=== PATIENT | male | born 1955 | race Caucasian/White ===

== ENCOUNTER → 2020-10-07 | Outpatient (CLI) | payer MEDICARE | END | disposition home or self-care (01) | LOC: LABWHC1 15:52 | PROVIDERS: ATTEND Family Medicine | DX: Z20.828 Contact with and (suspected) exposure to other viral communicable diseases (principal) | CPT/HCPCS: U0003; C9803 ==

== ENCOUNTER 2023-07-25 11:28 | Inpatient (IN) | payer MEDICARE ==
[2023-07-25] MEDS ORDERED: HEPARIN SODIUM 1,000 UN/ML (10ML VL) IV PRN ×2 (11:36→19:33)
[2023-07-25] MEDS ORDERED: NITROGLYCERIN SL TABS 0.4 MG TAB SUBLINGUAL PRN ×4 (11:37→20:59)
--- NOTE | 2023-07-25 11:40 | ED ---
Chest Pain HPI - General Stated Complaint: Chest Pain Time Seen by Provider: 07/25/23 11:30 Source: patient, EMS, RN notes reviewed Mode of arrival: EMS Limitations: no limitations - History of Present Illness Initial Comments: 67-year-old male presents emergency Department chief complaint of chest pain. Patient presents via EMS from [facility] as a transfer. Patient states that he had some on-and-off pain over the weekend states that it was worse with exertion. Patient states pain is resolving now. Patient reportedly had an elevated troponin 0.29 at [facility]. Patient initially had some EKG changes had resolved. Patient was placed on heparin. Patient states he currently has no chest pain or shortness breath he does have a history of hypertension. - Related Data Allergies Allergy/AdvReac Type Severity Reaction Status Date / Time No Known Allergies Allergy Verified 07/25/23 11:48 Review of Systems ROS Statement: Those systems with pertinent positive or pertinent negative responses have been documented in the HPI. ROS Other: All systems not noted in ROS Statement are negative. General Exam General appearance: alert, in no apparent distress Head exam: Present: atraumatic, normocephalic, normal inspection Eye exam: Present: normal appearance, PERRL, EOMI. Absent: scleral icterus, conjunctival injection, periorbital swelling ENT exam: Present: normal exam, normal oropharynx, mucous membranes moist Neck exam: Present: normal inspection, full ROM. Absent: tenderness, meningis mus, lymphadenopathy Respiratory exam: Present: normal lung sounds bilaterally. Absent: respiratory distress, wheezes, rales, rhonchi, stridor Cardiovascular Exam: Present: regular rate, normal rhythm, normal heart sounds. Absent: systolic murmur, diastolic murmur, rubs, gallop, clicks GI/Abdominal exam: Present: soft, normal bowel sounds. 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 sent in by a medical professional or institution (, PA, TESTING CONSULTANT, urgent care, hospital, or shelter...) When possible be specific @ -[facility] Did you speak to anyone other than the patient for history (EMS, parent, family, police, friend...)? What history was obtained from this source @ -[facility], [facility] as a transfer Did you review nursing and triage notes (agree or disagree)? Why? @ -I reviewed and agree with nursing and triage notes Were old charts reviewed (outside hosp., previous admission, EMS record, old EKG, old radiological studies, urgent care reports/EKG's, shelter records)? Report findings @ -Reviewed labs from prior hospital, EKG and chest x-ray Differential Diagnosis (chest pain, altered mental status, abdominal pain women, abdominal pain men, vaginal bleeding, weakness, fever, dyspnea, syncope, headache, dizziness, GI bleed, back pain, seizure, CVA, palpatations, mental health, musculoskeletal)? @ -Differential Chest Pain: Stable Angina, Unstable Angina, STEMI, NSTEMI Aortic Dissection, Pneumothorax, Musculoskeletal, Esophageal Spasm GERD, Cholecystitis, Pancreatitis, Zoster, this is not meant to be an all-inclusive list. e EKG interpreted by me (3pts min.). @ -None X-rays interpreted by me (1pt min.). @ -None done CT interpreted by me (1pt min.). @ -None done U/S interpreted by me (1pt. min.). @ -None done What testing was considered but not performed or refused? (CT, X-rays, U/S, labs)? Why? @ -None What meds were considered but not given or refused? Why? @ -None Did you discuss the management of the patient with other professionals (professionals i.e. , PA, TESTING CONSULTANT, lab, RT, psych nurse, social science professor, protection consultant, teacher, chief security officer, pillowcase cleaner)? Give summary @ -Dr. Chappell for admission for cardiac rule out, NSTEMI Was smoking cessation discussed for >3mins.? @ -No Was critical care preformed (if so, how long)? @ -35 mins Were there social determinants of health that impacted care today? How? (Homelessness, low income, unemployed, alcoholism, drug addiction, transportation, low edu. Level, literacy, decrease access to med. care, retirement, rehab)? @ -No Was there de-escalation of care discussed even if they declined (Discuss DNR or withdrawal of care, Hospice)? DNR status @ -No What co-morbidities impacted this encounter? (DM, HTN, Smoking, COPD, CAD, Cancer, CVA, ARF, Chemo, Hep., AIDS, mental health diagnosis, sleep apnea, morbid obesity)? @ -Hypertension Was patient admitted / discharged? Hospital course, mention meds given and route, prescriptions, significant lab abnormalities, going to OR and other pertinent info. @ -Admitted to the hospital for NSTEMI, for cardiology evaluation and repeat troponin, continuation of heparin. Undiagnosed new problem with uncertain prognosis? @ -No Drug Therapy requiring intensive monitoring for toxicity (Heparin, Nitro, Insulin, Cardizem)? @ -Heparin Were any procedures done? @ -No Diagnosis/symptom? @ -NSTEMI Acute, or Chronic, or Acute on Chronic? @ -acute Uncomplicated (without systemic symptoms) or Complicated (systemic symptoms)? @ -complicated Side effects of treatment? @ -No Exacerbation, Progression, or Severe Exacerbation? @ -No Poses a threat to life or bodily function? How? (Chest pain, [place], [place], pneumonia, PE, COPD, DKA, ARF, appy, cholecystitis, CVA, Diverticulitis, Homicidal, Suicidal, threat to staff... and all critical care pts) @ -yes at risk for cardiac arrest Disposition Clinical Impression: Chest pain, NSTEMI (non-ST elevated myocardial infarction) Disposition: ADMITTED IP TO THIS HOSP Condition: Fair Referrals: Kristofer Chappell MD [Primary Care Provider] - 1-2 days Time of Disposition: 11:40
[2023-07-25] MEDS ORDERED: HEPARIN SOD,PORK IN 0.45% NACL 25,000 UNIT in 0.45% NACL 1 250ML.BAG IV SCH ×2 (11:45→19:45)
[2023-07-25 12:12] LABS: Prothrombin Time 10.9 sec (9.0-12.0)
[2023-07-25 12:18] LABS: Partial Thromboplastin Time 78.1 sec (22.0-30.0)
[2023-07-25] MEDS ORDERED: ALPRAZolam 0.25 MG TAB PO PRN (13:18)
[2023-07-25] MEDS ORDERED: ALPRAZolam 0.5 MG TAB PO PRN (13:18)
--- NOTE | 2023-07-25 13:25 | P.CRDCN ---
History of Present Illness History of present illness: HISTORY OF PRESENT ILLNESS: This is a 67-year-old male with a past medical history significant for hypertension, hyperlipidemia, and former nicotine dependence. 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 We have been asked to see the patient in consultation for chest pain. Patient examined at the bedside in the emergency room. Patients and daughter present. The patient presented to [facility] this morning with a chief complaint of chest pain. The patient states he has been having chest pain on and off since Tuesday. He reports the pain is in the middle of his chest and feels like a pressure type sensation. He also reports radiation into his left arm. He denied feeling nauseated. He does report having mild diaphoresis. He denied any shortness of breath. At the time of examination, the patient is chest pain-free and is resting comfortably on the ER stretcher. Patient's vital signs are stable. He was found to have an elevated troponin and was started on IV heparin. * EKG reveals sinus mechanism with nonspecific ST-T wave changes. T-wave inversions in lead III and V3 * Current home cardiac medications include Crestor 10 mg at night, metoprolol succinate 100 mg at night, losartan-hydrochlorothiazide 50-12.5mg 2 tablets daily, aspirin 81 mg daily REVIEW OF SYSTEMS: At the time of my exam: CONSTITUTIONAL: Denies fever or chills. HEENT: Denies blurred vision, vision changes, or eye pain. Denies hemoptysis CARDIOVASCULAR: Denies chest pain. Denies orthopnea. Denies PND. Denies palpitations RESPIRATORY: Denies shortness of breath. GASTROINTESTINAL: Denies abdominal pain. Denies nausea or vomiting. HEMATOLOGIC: Denies bleeding disorders. GENITOURINARY: Denies any blood in urine. SKIN: Denies pruitis. Denies rash. PHYSICAL EXAM: VITAL SIGNS: Reviewed. GENERAL: Well-developed in no acute distress. HEENT: Head is normocephalic. Pupils are equal, round. Sclerae anicteric. Mucous membranes of the mouth are moist. Neck supple. No JVD or thyromegaly LUNGS: Respirations even and unlabored. Lungs essentially clear to auscultation bilaterally. HEART: Regular rate and rhythm. S1 and S2 heard. ABDOMEN: Soft. Nondistended. Nontender. EXTREMITIES: Normal range of motion. No clubbing or cyanosis. Peripheral pulses intact. No lower extremity edema NEUROLOGIC: Awake and alert. Oriented x 3. ASSESSMENT: Chest pain Non-STEMI Hypertension Hyperlipidemia Former nicotine dependence PLAN: Obtain 2-D echo to assess cardiac structure and function Resume home cardiac medications Continue IV heparin Add Nitropaste and high intensity statin NPO at midnight Patient to undergo cardiac catheterization tomorrow with Dr. Muir Further recommendations pending patient's course Nurse practitioner note has been reviewed by physician. Signing provider agrees with the documented findings, assessment, and plan of care. Past Medical History Past Medical History: Hypertension, Thyroid Disorder Additional Past Medical History / Comment(s): Grave's Disease, History of Any Multi-Drug Resistant Organisms: None Reported Past Surgical History: Ear Surgery, Orthopedic Surgery Additional Past Surgical History / Comment(s): Shoulder surgeries Past Psychological History: No Psychological Hx Reported Smoking Status: Former smoker Past Alcohol Use History: None Reported Past Drug Use History: None Reported Medications and Allergies Home Medications Medication Instructions Recorded Confirmed Type Aspirin EC [Ecotrin Low Dose] 81 mg PO HS 07/25/23 07/25/23 History Latanoprost [Latanoprost 0.005%] 1 drop BOTH EYES HS 07/25/23 07/25/23 History Levothyroxine Sodium [Synthroid] 175 mcg PO DAILY 07/25/23 07/25/23 History Loratadine [Claritin] 10 mg PO DAILY 07/25/23 07/25/23 History Losartan-Hctz 50-12.5 mg [Hyzaar 2 tab PO DAILY 07/25/23 07/25/23 History 50-12.5] Metoprolol Succinate [Toprol XL] 100 mg PO HS 07/25/23 07/25/23 History Multivitamins, Thera [Multivitamin 1 tab PO DAILY 07/25/23 07/25/23 History (formulary)] Rosuvastatin [Crestor] 10 mg PO HS 07/25/23 07/25/23 History Allergies Allergy/AdvReac Type Severity Reaction Status Date / Time No Known Allergies Allergy Verified 07/25/23 11:48 Physical Exam Vitals: Vital Signs Temp Pulse Pulse Resp BP Pulse Ox 07/25/23 11:46 89 07/25/23 11:33 98.2 F 90 18 140/77 96 Intake and Output 07/24/23 07/25/23 07/25/23 22:59 06:59 14:59 Intake Total 13 Balance 13 Intake: Intake, IV Titration 13 Amount Heparin Sod,Pork in 0.45% 13 NaCl 25,000 unit In 0.45 % NaCl 1 250ml.bag @ 9. 585 UNITS/KG/HR 10 mls/hr IV .Q24H [facility] Rx#: [id number] Other: Weight 104.326 kg Results Cardiac Enzymes 07/25/23 Range/Units 11:58 Troponin I 0.974 H* (0.000-0.034) ng/mL Coagulation 07/25/23 Range/Units 11:58 PT 10.9 (9.0-12.0) sec APTT 78.1 H (22.0-30.0) sec Current Medications Generic Name Dose Route Start Last Admin Trade Name Freq PRN Reason Stop Dose Admin Alprazolam 0.25 mg 07/25/23 13:18 Alprazolam 0.25 Mg Tab PO Q6HR PRN Mild Anxiety Alprazolam 0.5 mg 07/25/23 13:18 Alprazolam 0.5 Mg Tab PO Q6HR PRN Moderate Anxiety Aspirin 81 mg 07/26/23 09:00 Aspirin 81 Mg PO DAILY [facility] Aspirin 325 mg 07/26/23 05:00 Aspirin 325 Mg Tab PO 07/26/23 05:01 ONCE ONE Atorvastatin Calcium 80 mg 07/25/23 21:00 Atorvastatin 80 Mg Tab PO HS [facility] Atorvastatin Calcium 80 mg 07/26/23 05:00 Atorvastatin 80 Mg Tab PO 07/26/23 05:01 ONCE ONE HCTZ/Losartan Potassium 2 each 07/26/23 09:00 Losartan-Hctz 50-12.5 Mg 1 Each Tab PO DAILY [facility] Heparin Sodium (Porcine) 0 unit 07/25/23 11:36 Heparin Sodium 1,000 Un/Ml (10ml Vl) IV PER PROTOCOL PRN Low PTT Protocol Heparin Sodium/Sodium Chloride 250 mls @ 10 mls/hr 07/25/23 11:45 07/25/23 12:48 25,000 unit/ Sodium Chloride IV 10.54 units/kg/hr .Q24H [facility] 11 mls/hr Titration Protocol 9.585 UNITS/KG/HR Heparin Sodium (Porcine) 10, 1,001 mls @ 999 mls/hr 07/26/23 07:00 000 unit/ Sodium Chloride IRRIGATION 07/26/23 23:00 ONCE PRN INTRA-OP Heparin Sodium (Porcine) 2,500 250.5 mls @ 250 mls/hr 07/26/23 07:00 unit/ Sodium Chloride IRRIGATION 07/26/23 23:00 ONCE PRN INTRA-OP Sodium Chloride 1,000 ml/ IV 1,000 mls @ 104.326 mls/hr 07/25/23 23:00 Solution IV .Q9H36M [facility] 1 ML/KG/HR Latanoprost 1 drops 07/25/23 21:00 Latanoprost 0.005% Ophth Drops 2.5 Ml Btl BOTH EYES HS [facility] Metoprolol Succinate 100 mg 07/25/23 21:00 Metoprolol Succinate (Er) 50 Mg Tab.Er.24h PO HS [facility] Nitroglycerin 0.4 mg 07/25/23 11:37 Nitroglycerin Sl Tabs 0.4 Mg Tab SUBLINGUAL Q5M PRN Chest Pain Nitroglycerin 0.5 inch 07/25/23 13:30 Nitroglycerin Oint 1 Inch/Gm Packet TOPICAL Q8H [facility] Nitroglycerin 0.4 mg 07/25/23 13:18 Nitroglycerin Sl Tabs 0.4 Mg Tab SUBLINGUAL Q5M PRN Chest Pain Non-Formulary Medication 175 mcg 07/26/23 09:00 Levothyroxine Sodium [Synthroid] PO DAILY [facility] Intake and Output 07/24/23 07/25/23 07/25/23 22:59 06:59 14:59 Intake Total 13 Balance 13 Intake: Intake, IV Titration 13 Amount Heparin Sod,Pork in 0.45% 13 NaCl 25,000 unit In 0.45 % NaCl 1 250ml.bag @ 9. 585 UNITS/KG/HR 10 mls/hr IV .Q24H [facility] Rx#: [id number] Other: Weight 104.326 kg Patient Weight 07/26/23 06:59 Weight 104.326 kg
[2023-07-25 13:39] LABS: Glucose,Whole Blood 113 mg/dL (70-110)
[2023-07-25 13:43] LABS: Basophils % (A) 0 %; Eosinophils # (A) 0.2 k/uL (0-0.7); Eosinophils % (A) 2 %; HCT 43.2 % (39.0-53.0); HGB 14.8 gm/dL (13.0-17.5); Lymphocytes # (A) 2.2 k/uL (1.0-4.8); Lymphocytes % (A) 26 %; MCH 30.8 pg (25.0-35.0); MCHC 34.3 g/dL (31.0-37.0); MCV 89.8 fL (80.0-100.0); Mean Platelet Volume 7.5; Monocytes # (A) 0.5 k/uL (0-1.0); Monocytes % (A) 6 %; Neutrophils # (A) 5.3 k/uL (1.3-7.7); Neutrophils % (A) 63 %; Platelet Count 255 k/uL (150-450); RBC 4.81 m/uL (4.30-5.90); RDW 14.3 % (11.5-15.5); WBC 8.4 k/uL (3.8-10.6)
[2023-07-25 14:02] LABS: African American GFR (CKD) >90 (>60 ml/min/1.73 sqM); Anion Gap 6 mmol/L; Blood Urea Nitrogen 18 mg/dL (9-20); Calcium 10.1 mg/dL (8.4-10.2); Carbon Dioxide 23 mmol/L (22-30); Chloride 106 mmol/L (98-107); Glucose 123 mg/dL (74-99); Non-African American GFR(CKD) >90 (>60 ml/min/1.73 sqM); Sodium 135 mmol/L (137-145)
[2023-07-25 14:03] LABS: Potassium 5.3 mmol/L (3.5-5.1)
[2023-07-25] MEDS: NITROGLYCERIN OINT 1 INCH/GM PACKET TOPICAL SCH ×2 (15:04→23:44)
[2023-07-25] MEDS ORDERED: IV FLUID CONTINUATION 1,000 ML IV ONE ×2 (16:58→20:05)
--- NOTE | 2023-07-25 17:00 | CA ---
Transthoracic Echo Report Name: Jim Wren Age: 67 Gender: M : 1955 Exam Date: 07/25/2023 14:06 Exam Location: [facility] Ht (in): 67 Wt (lb): 230 Ordering Physician: Alvaro Reid Attending/Referring Phys: [id number], [employer] Investigator Librado Angulo Procedure CPT: Indications: Chest Pain Cardiac Hx: Technical Quality: Technically difficult study Contrast 1: Lumason Total Dose (mL): 5 Contrast 2: Total Dose (mL): MEASUREMENTS (Male / Female) Normal Values 2D ECHO LV Diastolic Diameter PLAX 4.5 cm 4.2 - 5.9 / 3.9 - 5.3 cm LV Systolic Diameter PLAX 3.1 cm IVS Diastolic Thickness 1.3 cm 0.6 - 1.0 / 0.6 - 0.9 cm LVPW Diastolic Thickness 1.0 cm 0.6 - 1.0 / 0.6 - 0.9 cm LV Relative Wall Thickness 0.5 RV Internal Dim ED PLAX 3.1 cm LVOT Diameter 2.1 cm Aortic Root Diameter 2.8 cm LA Systolic Diameter LX 2.5 cm 3.0 - 4.0 / 2.7 - 3.8 cm LV Diastolic Volume MOD BP 48.4 cm??? 67 - 155 / 56 - 104 cm??? LV Systolic Volume MOD BP 20.2 cm??? - 58 / 19 - 49 cm??? LV Ejection Fraction MOD BP 58.2 % >= 55 % LV Cardiac Index MOD BP 1108.9 cm???/min???m??? LV Diastolic Volume MOD 4C 48.8 cm??? LV Systolic Volume MOD 4C 16.8 cm??? LV Ejection Fraction MOD 4C 65.5 % LV Cardiac Index MOD 4C 1254.9 cm???/min???m??? LV Diastolic Length 4C 7.3 cm LV Systolic Length 4C 6.7 cm LV Diastolic Volume MOD 2C 47.9 cm??? LV Systolic Volume MOD 2C 35.0 cm??? LV Ejection Fraction MOD 2C 27.0 % LV Cardiac Index MOD 2C 508.3 cm???/min???m??? LV Diastolic Length 2C 7.2 cm LV Systolic Length 2C 7.0 cm LA Volume 47.4 cm??? 18 - 58 / 22 - 52 cm??? Ascending Aorta Diameter 3.2 cm DOPPLER AV Peak Velocity 153.4 cm/s AV Peak Gradient 9.4 mmHg LVOT Peak Velocity 105.6 cm/s LVOT Peak Gradient 4.5 mmHg LVOT Velocity Time Integral 24.6 cm LVOT Stroke Volume 82.5 cm??? LVOT Stroke Volume Index 38.5 ml/m??? LVOT Cardiac Index 3245.2 cm???/min???m??? AV Area Cont Eq pk 2.3 cm??? MV Peak Velocity 125.3 cm/s MV Peak Gradient 6.3 mmHg MV Mean Velocity 59.4 cm/s MV Mean Gradient 1.8 mmHg MV Velocity Time Integral 34.7 cm Mitral E Point Velocity 79.3 cm/s Mitral A Point Velocity 116.5 cm/s Mitral E to A Ratio 0.7 MV Deceleration Time 211.0 ms MV E' Velocity 6.8 cm/s Mitral E to MV E' Ratio 11.7 PV Peak Velocity 110.3 cm/s PV Peak Gradient 4.9 mmHg FINDINGS Left Ventricle Normal LV size and wall thickness. Emery-apical hypokenesis. Left ventricular ejection fraction is estimated at 40-45 % visually. Right Ventricle Normal right ventricular size. Right Atrium Normal right atrial size. Left Atrium Normal left atrial size. LA volume index = 22ml/m2 Mitral Valve Structurally normal mitral valve. No mitral stenosis, regurgitation or prolapse. Aortic Valve Aortic valve not well visualized. Trileaflet aortic valve. No aortic valve stenosis or regurgitation. Tricuspid Valve Tricuspid valve not well visualized. No tricuspid regurgitation. Pulmonic Valve Pulmonic valve not well visualized. No pulmonic regurgitation. Pericardium Normal pericardium. Aorta Normal size aortic root and proximal ascending aorta. CONCLUSIONS Left ventricular ejection fraction 40-45% with anterior apical hypokinesis. Possible Takotsubo's vs ischemic cardiomyopathy No mitral regurgitation No tricuspid regurgitation No pericardial effusion Previewed by: Dr. Og Choudhary DO (Electronically Signed) Final Date: 25 July 2023 16:59
[2023-07-25] MEDS ORDERED: VERAPAMIL 2.5 MG/ML 2 ML AMP ONE (17:01)
[2023-07-25] MEDS ORDERED: HEPARIN SODIUM 1,000 UN/ML (10ML VL) ONE ×2 (17:02→20:23)
[2023-07-25] MEDS ORDERED: fentaNYL (PF) 50 MCG/ML 2 ML AMP ONE (17:02)
[2023-07-25] MEDS ORDERED: LIDOCAINE 1% INJ 10MG/ML (20 ML MDV) ONE (17:02)
[2023-07-25] MEDS ORDERED: fentaNYL (PF) 50 MCG/ML 2 ML AMP IVP ONE (17:06)
[2023-07-25] MEDS: MIDAZOLAM 2 MG/2 ML VIAL IVP ONE ×2 (17:06→18:12)
[2023-07-25] MEDS: LIDOCAINE 1% INJ 10MG/ML (20 ML MDV) SQ ONE ×2 (17:07→18:10)
[2023-07-25] MEDS ORDERED: VERAPAMIL SYRINGE (5 MG/10 ML) INTRAARTER ONE (17:08)
[2023-07-25] MEDS: HEPARIN SODIUM 1,000 UN/ML (10ML VL) IV ONE ×2 (17:15→17:46)
[2023-07-25] MEDS ORDERED: PRASUGREL 10 MG TAB ONE (17:47)
[2023-07-25] MEDS ORDERED: PRASUGREL 10 MG TAB PO ONE (17:49)
[2023-07-25] MEDS ORDERED: IOPAMIDOL-370 100ML BTL INJ ONE ×2 (18:28→18:50)
[2023-07-25] MEDS ORDERED: NITROGLYCERIN 1000MCG/10ML SYRINGE INTRACORON ONE (18:35)
[2023-07-25] MEDS ORDERED: RX INFO: IV CONTRAST WAS GIVEN 1 EACH MISC MISCELLANE PRN ×2 (18:40→20:59)
[2023-07-25] MEDS ORDERED: MAG HYDROX/AL HYDROX/SIMETH 30 ML CUP PO PRN ×2 (18:40→20:59)
[2023-07-25] MEDS ORDERED: ATROPINE SULFATE 0.1 MG/ML 10ML SYRINGE IV PRN ×2 (18:40→20:59)
[2023-07-25] MEDS ORDERED: ZOLPIDEM 5 MG TAB PO PRN ×2 (18:40→20:59)
--- NOTE | 2023-07-25 18:44 | P.PCN ---
Date of Procedure: 07/25/23 Operative Findings: PERCUTANEOUS CORONARY INTERVENTION Performing physician Rom Rain M.D. Procedure Performed: 1. Successful stenting of the mid LAD using 3.5 x 23 mm Xience drug-eluting stent with an excellent angiographic results. 2. Adjunctive use of intravascular ultrasound 3. Selective right common femoral artery angiogram Indication: This is a 67-year-old gentleman who was admitted to the hospital with a chest discomfort and ruled in for acute coronary syndrome. He underwent a heart catheterization and that revealed critical disease involving the mid LAD with a plaque rupture and thrombus formation. Approach: Right radial artery and right common femoral artery Complications: None Level of Sedation: Moderate with a sedation length of 51 minutes Procedure Discussion: Please refer to be diagnostic heart catheterization was performed earlier today. Anticoagulation was initiated using heparin with continuous ACT monitoring. Attempting engaging the left main using multiple guiding catheter including JL 3 .5 and JL 3 and CLS was unsuccessful. The patient's right subclavian artery is tortuous. Finally I was able to access the right common femoral artery and I did place a 6-Pashto sheath at the right common femoral artery. I was able to engage the left main using CLS guiding catheter. After that I did wire the LAD using a run-through wire. After that I did intravascular ultrasound and that showed soft plaque involving the LAD in the midportion with possible thrombus formation. I did balloon angioplasty using a 3.0 mm balloon before I deployed 3.5 x 23 mm stent and postdilated the stent using 4 mm balloon. Final angiogram showed excellent angiographic results recommended and confirmed by intravascular ultrasound. The procedure was completed was no complication Postprocedure Management: 1. Dual antiplatelet therapy using aspirin and Effient for 12 month 2. Aggressive cholesterol control 3. Risk factors modification
[2023-07-25] MEDS ORDERED: SODIUM CHLORIDE 0.9% 1,000 ML in EMPTY BAG 1 BAG IV SCH ×3 (18:45→23:00)
[2023-07-25] MEDS ORDERED: MORPHINE SULFATE 2 MG/ML SYRINGE IVP STA ×2 (19:47→19:55)
--- NOTE | 2023-07-25 20:00 | P.HPIM ---
History of Present Illness H&P Date: 07/25/23 Chief Complaint: nstemi The patient is 67-year-old white male well-known to my practice has an underlying history of hypertension who is evaluated for an NSTEMI. The patient was taken to the [facility] and had appropriate PCI. The patient however has had renewed ST elevation with anginal pain. Cardiology is now coming to reevaluate. The patient is a former smoker. Past Medical History Past Medical History: Hypertension, Thyroid Disorder Additional Past Medical History / Comment(s): Grave's Disease, History of Any Multi-Drug Resistant Organisms: None Reported Past Surgical History: Ear Surgery, Orthopedic Surgery Additional Past Surgical History / Comment(s): Shoulder surgeries Past Psychological History: No Psychological Hx Reported Smoking Status: Former smoker Past Alcohol Use History: None Reported Past Drug Use History: None Reported Medications and Allergies Home Medications Medication Instructions Recorded Confirmed Type Aspirin EC [Ecotrin Low Dose] 81 mg PO HS 07/25/23 07/25/23 History Latanoprost [Latanoprost 0.005%] 1 drop BOTH EYES HS 07/25/23 07/25/23 History Levothyroxine Sodium [Synthroid] 175 mcg PO DAILY 07/25/23 07/25/23 History Loratadine [Claritin] 10 mg PO DAILY 07/25/23 07/25/23 History Losartan-Hctz 50-12.5 mg [Hyzaar 2 tab PO DAILY 07/25/23 07/25/23 History 50-12.5] Metoprolol Succinate [Toprol XL] 100 mg PO HS 07/25/23 07/25/23 History Multivitamins, Thera [Multivitamin 1 tab PO DAILY 07/25/23 07/25/23 History (formulary)] Rosuvastatin [Crestor] 10 mg PO HS 07/25/23 07/25/23 History Allergies Allergy/AdvReac Type Severity Reaction Status Date / Time No Known Allergies Allergy Verified 07/25/23 11:48 Physical Exam Vitals: Vital Signs Temp Pulse Pulse Resp BP Pulse Ox 07/25/23 16:43 100 18 164/98 96 07/25/23 15:03 85 18 131/95 95 07/25/23 11:46 89 07/25/23 11:33 98.2 F 90 18 140/77 96 Intake and Output 07/25/23 07/25/2307/25/23 06:59 14:59 22:59 Intake Total 13 300 Balance 13 300 Intake: IV 300 Intake, IV Titration 13 Amount Heparin Sod,Pork in 0.45% 13 NaCl 25,000 unit In 0.45 % NaCl 1 250ml.bag @ 9. 585 UNITS/KG/HR 10 mls/hr IV .Q24H [facility] Rx#: [id number] Other: Weight 104.326 kg - Constitutional General appearance: no acute distress - EENT Eyes: EOMI - Neck Neck: no lymphadenopathy - Respiratory Respiratory: bilateral: diminished - Cardiovascular Rhythm: regular Heart sounds: normal: S1, S2 Abnormal Heart Sounds: no S3 Gallop - Gastrointestinal General gastrointestinal: soft, no tenderness - Psychiatric Psychiatric: A&O x's 3, appropriate affect Results CBC & Chem 7: 07/25/23 13:34 07/25/23 13:34 Labs: Abnormal Lab Results - Last 24 Hours (Table) 07/25/23 07/25/23 07/25/23 Range/Units 11:58 11:58 13:34 APTT 78.1 H (22.0-30.0) sec Sodium 135 L (137-145) mmol/L Potassium 5.3 H (3.5-5.1) mmol/L Glucose 123 H (74-99) mg/dL POC Glucose (mg/dL) (70-110) mg/dL Troponin I 0.974 H* (0.000-0.034) ng/mL 07/25/23 07/25/23 Range/Units 13:37 15:13 APTT (22.0-30.0) sec Sodium (137-145) mmol/L Potassium (3.5-5.1) mmol/L Glucose (74-99) mg/dL POC Glucose (mg/dL) 113 H (70-110) mg/dL Troponin I 5.140 H* (0.000-0.034) ng/mL Assessment and Plan (1) Hypertension Current Visit: Yes Status: Acute Code(s): I10 - ESSENTIAL (PRIMARY) HYPERTENSION SNOMED Code(s): 55852646 (2) Chest pain Current Visit: Yes Status: Acute Code(s): R07.9 - CHEST PAIN, UNSPECIFIED SNOMED Code(s): 19746968 (3) NSTEMI (non-ST elevated myocardial infarction) Current Visit: Yes Status: Acute Code(s): I21.4 - NON-ST ELEVATION (NSTEMI) MYOCARDIAL INFARCTION SNOMED Code(s): 97271953 Plan: The patient is having some type of reperfusion issue. Continued angina. Reevaluation by cardiac catheterization lab might be necessary at this time. We'll continue to follow. Prognosis guarded. Check CBC and CMP in a.m.
[2023-07-25] MEDS ORDERED: MORPHINE SULFATE 4 MG/ML SYRINGE ONE (20:21)
[2023-07-25] MEDS ORDERED: HEPARIN SODIUM 1,000 UN/ML (10ML VL) IV ONE (20:25)
[2023-07-25] MEDS ORDERED: MORPHINE SULFATE 4 MG/ML SYRINGE IVP ONE (20:25)
[2023-07-25] MEDS ORDERED: TIROFIBAN 12.5MG-250ML NS 250 ML IV SCH (20:30)
[2023-07-25] MEDS ORDERED: TIROFIBAN 12.5MG-250ML NS 250 ML IV ONE (20:31)
[2023-07-25] MEDS ORDERED: MIDAZOLAM 2 MG/2 ML VIAL IVP ONE (20:43)
[2023-07-25] MEDS ORDERED: FUROSEMIDE 10 MG/ML 4 ML VIAL ONE (20:43)
[2023-07-25] MEDS ORDERED: FUROSEMIDE 10 MG/ML 2 ML VIAL IV ONE (20:46)
[2023-07-25] MEDS ORDERED: IOPAMIDOL-370 200ML BTL INJ ONE (20:56)
--- NOTE | 2023-07-25 21:07 | P.PCN ---
Date of Procedure: 07/25/23 Operative Findings: PERCUTANEOUS CORONARY INTERVENTION Performing physician Rom Rain M.D. Procedure Performed: 1. Successful balloon angioplasty of the mid left anterior descending artery with reduction of stenosis from 100% to 0% 2. Adjunctive use of intravascular ultrasound and aspiration thrombectomy 3. Selective left coronary angiogram Indication: This is a 67-year-old gentleman who underwent earlier today successful stenting of the left anterior descending artery in the setting of acute coronary syndrome/acute non-ST patient myocardial infarction. The procedure ended with an excellent angiographic results and reduction of stenosis from 99% to 0% with NICOLÁS-3 flow. The patient left the cardiac cardiac cath lab radiology technologist in stable medical condition and he was asymptomatic and hemodynamic is stable. Few hours after the procedure he started experiencing chest discomfort and ST segment elevation anteriorly. In the light of that he was brought emergently to the cardiac cardiac cath lab radiology technologist. The right groin sheath was already in place. Approach: Right common femoral artery Complications: None Level of Sedation: Moderate with a sedation length of 35 minutes Procedure Discussion: Please refer to prior angioplasty was performed earlier today. The right common femoral artery sheath was exchanged over an 035 wire into a new sheath 6-Bulgarian 11 cm. Subsequently I did engage the left main using a CLS 3 guiding catheter. I did an angiogram of the left coronary system and that revealed occluded LAD in the midportion which seems to be an acute stent thrombosis. Subsequently I did wire the LAD using a run-through wire. I did an aspiration thrombectomy from the LAD using an export catheter with the extraction of right thrombus. After that intravascular ultrasound was performed and revealed that the stent was opposed. I decided to do balloon angioplasty of the stented segment. Proximally I did balloon angioplasty using 4.5 mm balloon and distally I did balloon angioplasty using 4.0 mm balloon. Both balloons where noncompliant balloon. Intravascular ultrasound was performed again and showed good results and angiographically the patient did have NICOLÁS-3 flow. There was a thrombus burden involving the ostial of the second diagonal branch but it has NICOLÁS 3 flow and it. I decided to give the patient Aggrastat for the next 12-18 hours. The procedure was completed there was no complication and the patient tolerated the procedure well and he was hemodynamic stable and asymptomatic. No hematoma was identified in the groin. Conclusion: 1. Acute stent thrombosis 2. Successful balloon angioplasty without stenting of the LAD with an excellent angiographic results and reduction of stenosis from 100% to 0% Postprocedure Management: 1. Dual antiplatelet therapy using aspirin and Plavix 2. Continue Aggrastat for the next 12-18 hours 3. Standard groin care
[2023-07-25 22:39] LABS: Glucose,Whole Blood 146 mg/dL (70-110)
--- NOTE | 2023-07-25 23:19 | CC ---
CARDIAC CATHETERIZATION REPORT INDICATION: Acute non ST-segment elevation NM. PROCEDURE NOTE: After obtaining informed consent, left heart catheterization and coronary angiogram were performed via the right radial artery using standard Lissett catheters. The patient tolerated the procedure well without any obvious immediate complications. The patient received verapamil and heparin per protocol. TOTAL SEDATION TIME: 17 minutes. Right radial artery access was obtained using modified Seldinger technique. A 6-Bengali sheath was placed. Catheters and wires were passed into the ascending aorta under fluoroscopic guidance. The patient tolerated the procedure well without any obvious immediate complications. FINDINGS: 1. Right coronary artery is a large dominant vessel that shows mild nonobstructive disease involving the PDA. 2. The left main coronary artery is a normal-sized vessel and is free of stenosis. It divides into left anterior descending coronary artery and circumflex coronary artery. 3. Circumflex coronary artery is a nondominant vessel that is free of significant stenosis. There is mild nonobstructive disease involving the OM branch. 4. LAD shows a focal 95% stenosis in the midportion between the first and second diagonal branch. This is a vessel that seems to be related to the myocardial infarction and I will ask Dr. Rain, the on-call tailor helper, to perform angioplasty of the same. CONCLUSION: Severe 95% stenosis in the mid LAD between first and second diagonal branch with mild nonobstructive disease involving the PDA and the OM branch. MMODL / IJN: [id number] /
[2023-07-25] MEDS: METOPROLOL SUCCINATE (ER) 100 MG TAB.ER.24H PO SCH (23:49)
[2023-07-25] MEDS: ATORVASTATIN 80 MG TAB PO SCH (23:49)
[2023-07-25] MEDS: LATANOPROST 0.005% OPHTH DROPS 2.5 ML BTL BOTH EYES SCH (23:52)
[2023-07-26] MEDS ORDERED: ATORVASTATIN 80 MG TAB PO ONE (05:00)
[2023-07-26] MEDS ORDERED: ASPIRIN 325 MG TAB PO ONE (05:00)
[2023-07-26] MEDS: NITROGLYCERIN OINT 1 INCH/GM PACKET TOPICAL SCH (06:46)
[2023-07-26] MEDS: LEVOTHYROXINE 75 MCG TAB PO SCH (06:55)
[2023-07-26] MEDS: LEVOTHYROXINE 100 MCG TAB PO SCH (06:55)
[2023-07-26] MEDS ORDERED: HEPARIN SODIUM,PORCINE (1 ML) 2,500 UNIT in SODIUM CHLORIDE 0.9% 250 ML IRRIGATION PRN (07:00)
[2023-07-26] MEDS ORDERED: HEPARIN SODIUM,PORCINE 10,000 UNIT in SODIUM CHLORIDE 0.9% 1,000 ML IRRIGATION PRN (07:00)
--- NOTE | 2023-07-26 08:03 | P.PN ---
Subjective Progress Note Date: 07/26/23 Principal diagnosis: This is a continue progress 67-year-old white male who had PCI placed but ended up having reperfusion stenosis. ST segment elevation was noted postoperatively and he was taken back to lab and this was corrected. The patient feels much better this morning. No shortness of breath no dizziness. Appetite is nominal. Objective - Vital Signs Vital signs: Vital Signs Temp 98 F 07/26/23 04:00 Pulse 96 07/26/23 07:00 Resp 17 07/26/23 07:00 BP 120/72 07/26/23 07:00 Pulse Ox 94 L 07/26/23 07:00 FiO2 Intake & Output 07/25/23 07/26/23 07/26/23 18:59 06:59 18:59 Intake Total 313 639 75 Output Total 1350 Balance 313 -711 75 Weight 104.326 kg 106.6 kg Intake: IV 300 639 75 Sodium Chloride 0.9% 1, 525 75 000 ml In Empty Bag 1 bag @ 75 mls/hr IV .[id number] [facility] Rx#:[id number] Intake, IV Titration 13 Amount Heparin Sod,Pork in 0.45% 13 NaCl 25,000 unit In 0.45 % NaCl 1 250ml.bag @ 9. 585 UNITS/KG/HR 10 mls/hr IV .Q24H [facility] Rx#: [id number] Output: Urine 1350 Other: Voiding Method Urinal # Voids 1 ABP, PAP, CO, CI - Last Documented Arterial Blood Pressure 112/57 - Constitutional General appearance: Present: average body habitus - EENT Eyes: Absent: abnormal pupil - Respiratory Respiratory: bilateral: diminished - Cardiovascular Rhythm: regular Heart sounds: normal: S1, S2 Abnormal Heart Sounds: Absent: S3 Gallop - Gastrointestinal General gastrointestinal: Present: soft. Absent: tenderness - Integumentary Integumentary: Absent: cellulitis - Labs CBC & Chem 7: 07/25/23 13:34 07/25/23 13:34 Labs: Abnormal Lab Results - Last 24 Hours (Table) 07/25/23 07/25/23 07/25/23 Range/Units 11:58 11:58 13:34 APTT 78.1 H (22.0-30.0) sec Sodium 135 L (137-145) mmol/L Potassium 5.3 H (3.5-5.1) mmol/L Glucose 123 H (74-99) mg/dL POC Glucose (mg/dL) (70-110) mg/dL Troponin I 0.974 H* (0.000-0.034) ng/mL 07/25/23 07/25/23 07/25/23 Range/Units 13:37 15:13 19:12 APTT (22.0-30.0) sec Sodium (137-145) mmol/L Potassium (3.5-5.1) mmol/L Glucose (74-99) mg/dL POC Glucose (mg/dL) 113 H (70-110) mg/dL Troponin I 5.140 H* 15.700 H* (0.000-0.034) ng/mL 07/25/23 07/25/23 Range/Units 19:12 22:37 APTT 162.8 H* (22.0-30.0) sec Sodium (137-145) mmol/L Potassium (3.5-5.1) mmol/L Glucose (74-99) mg/dL POC Glucose (mg/dL) 146 H (70-110) mg/dL Troponin I (0.000-0.034) ng/mL Assessment and Plan (1) Hypertension Current Visit: Yes Status: Acute Code(s): I10 - ESSENTIAL (PRIMARY) HYPERTENSION SNOMED Code(s): 20673279 (2) Chest pain Current Visit: Yes Status: Acute Code(s): R07.9 - CHEST PAIN, UNSPECIFIED SNOMED Code(s): 74030722 (3) NSTEMI (non-ST elevated myocardial infarction) Current Visit: Yes Status: Acute Code(s): I21.4 - NON-ST ELEVATION (NSTEMI) MYOCARDIAL INFARCTION SNOMED Code(s): 75077788 Plan: Stable at this time. We'll continue to follow after an STEMI. Time with Patient: Less than 30
[2023-07-26] MEDS ORDERED: ASPIRIN 325 MG TAB PO SCH (09:00)
[2023-07-26] MEDS ORDERED: ISOSORBIDE MONONITRATE ER 30 MG TAB.ER.24H PO SCH (09:00)
[2023-07-26] MEDS ORDERED: LOSARTAN-HCTZ 50-12.5 MG 1 EACH TAB PO SCH (09:00)
[2023-07-26] MEDS: PRASUGREL 10 MG TAB PO SCH (09:16)
--- NOTE | 2023-07-26 09:48 | PN ---
PROGRESS NOTE SUBJECTIVE: This is a 67-year-old gentleman that came to hospital yesterday with acute non-ST- segment elevation [place], underwent urgent cardiac catheterization by me and angioplasty with stent placement of LAD by Dr. Rain. The patient had an excellent angiographic result, but last night developed sudden onset of chest pain with acute ST-segment elevation in the LAD distribution and was taken back to manager laboratory and was found to have acutely occluded LAD for which he underwent thrombectomy and balloon angioplasty. An IVUS confirmed optimal placement of the stent. He was treated with Aggrastat, and were continued. This morning, Aggrastat had been stopped. He is free of symptoms, stable hemodynamically and in no apparent distress. He is currently on aspirin, Lipitor, Toprol-XL 100 mg daily and Hyzaar 50/12.5 daily and nitroglycerin paste, which will be switched to Imdur. OBJECTIVE: GENERAL: On exam, he is comfortable at rest. VITAL SIGNS: Stable. NECK: There is no jugular venous distention. Carotid upstroke is normal. There is no bruit. CHEST: Reveals good air entry bilaterally. HEART: Reveals first and second heart sounds. No gallop. No murmur. No rub. ABDOMEN: Soft, nontender. EXTREMITIES: Exam of extremities did not reveal any edema. Right radial artery access site appears normal. Right femoral arterial access site appears normal. Distal pulses are normal. LABORATORY FINDINGS: This morning's labs are pending. The troponin yesterday was elevated at 15.7. I advised him to repeat a troponin this morning. I am also going to repeat a limited echo on him. An echocardiogram done yesterday prior to the angiogram showed an ejection fraction of 45% with anteroapical hypokinesis. ASSESSMENT AND PLAN: Acute amw-OC-vwmhptj elevation myocardial infarction with status post stenting of the mid LAD, status post acute stent thrombosis and balloon angioplasty. The patient is doing well this morning treated with Aggrastat that had just been stopped. He will continue with aspirin, Plavix, and increase his activity and if he is doing well, I will transfer him out of ICU around 4 o'clock today. I will repeat a limited echo and continue him on his current medications. I am hoping to discharge him home either tomorrow evening or the day after. MMODL / IJN: [id number] /
[2023-07-26 09:57] LABS: HCT 43.1 % (39.0-53.0); HGB 14.3 gm/dL (13.0-17.5); MCH 30.5 pg (25.0-35.0); MCHC 33.3 g/dL (31.0-37.0); MCV 91.8 fL (80.0-100.0); Mean Platelet Volume 7.3; Platelet Count 241 k/uL (150-450); RBC 4.69 m/uL (4.30-5.90); RDW 14.8 % (11.5-15.5); WBC 11.5 k/uL (3.8-10.6)
[2023-07-26 10:01] LABS: INR 1.1 (<1.2); Prothrombin Time 11.4 sec (9.0-12.0)
[2023-07-26 10:26] LABS: ALT 71 U/L (4-49); AST 325 U/L (17-59); African American GFR (CKD) >90 (>60 ml/min/1.73 sqM); Albumin 3.9 g/dL (3.5-5.0); Alkaline Phosphatase 49 U/L (38-126); Anion Gap 5 mmol/L; Blood Urea Nitrogen 19 mg/dL (9-20); Calcium 9.3 mg/dL (8.4-10.2); Carbon Dioxide 25 mmol/L (22-30); Chloride 106 mmol/L (98-107); Glucose 131 mg/dL (74-99); Non-African American GFR(CKD) >90 (>60 ml/min/1.73 sqM); Potassium 4.1 mmol/L (3.5-5.1); Sodium 136 mmol/L (137-145); Total Protein 6.4 g/dL (6.3-8.2)
[2023-07-26 10:57] VITALS: BMI 36.8
--- NOTE | 2023-07-26 15:40 | CA ---
Transthoracic Echo Report Name: Jim Wren Age: 67 Gender: M : 1955 Exam Date: 07/26/2023 10:22 Exam Location: [facility] Ht (in): 67 Wt (lb): 235 Ordering Physician: Vicente Muir MD ([id number]) Attending/Referring Phys: Wood SEAY Bobbin Inspector Hayde Howard RDCS Procedure CPT: Indications: post cardiac stent with re occlusion Cardiac Hx: Technical Quality: Technically difficult study Contrast 1: Lumason Total Dose (mL): 4 Contrast 2: Total Dose (mL): MEASUREMENTS (Male / Female) Normal Values 2D ECHO LV Diastolic Diameter PLAX 4.3 cm 4.2 - 5.9 / 3.9 - 5.3 cm LV Systolic Diameter PLAX 2.6 cm IVS Diastolic Thickness 1.6 cm 0.6 - 1.0 / 0.6 - 0.9 cm LVPW Diastolic Thickness 1.7 cm 0.6 - 1.0 / 0.6 - 0.9 cm LV Relative Wall Thickness 0.8 FINDINGS Left Ventricle Limited study. Moderately increased left ventricular wall thickness. [place] hypokinetic. Apical septal wall hypokinetic. Left ventricular ejection fraction is estimated at 30-35 %. Right Ventricle Right Atrium Left Atrium Mitral Valve Aortic Valve Tricuspid Valve Pulmonic Valve Pericardium No pericardial effusion. Aorta CONCLUSIONS Limited 2-D echo Left ventricular ejection fraction 30-35% with apical hypokinesis Previewed by: Dr. Og Choudhary DO (Electronically Signed) Final Date: 26 July 2023 15:39
[2023-07-26 18:20] LABS: Chol/HDL Ratio 2.44 Ratio; LDL Cholesterol,Calculated 44.7 mg/dL (0.0-131.0); VLDL Calculation 17.88 mg/dL (5.00-40.00)
[2023-07-26] MEDS: LATANOPROST 0.005% OPHTH DROPS 2.5 ML BTL BOTH EYES SCH (21:20)
[2023-07-26] MEDS: ATORVASTATIN 80 MG TAB PO SCH (21:20)
[2023-07-26] MEDS: METOPROLOL SUCCINATE (ER) 100 MG TAB.ER.24H PO SCH (21:21)
[2023-07-27] MEDS: LEVOTHYROXINE 100 MCG TAB PO SCH (06:33)
[2023-07-27] MEDS: LEVOTHYROXINE 75 MCG TAB PO SCH (06:33)
--- NOTE | 2023-07-27 08:25 | P.PN ---
Subjective Principal diagnosis: This is a continue progress 67-year-old white male who had PCI placed but ended up having reperfusion stenosis. ST segment elevation was noted postoperatively and he was taken back to lab and this was corrected. The patient feels much better this morning. No shortness of breath no dizziness. Appetite is nominal. A little bit tachycardic today but the patient has no significant anginal equivalent. No voiding difficulties. Tolerating diet up properly. Objective - Vital Signs Vital signs: Vital Signs Temp 98.2 F 07/27/23 00:00 Pulse 80 07/27/23 02:00 Resp 2 L 07/27/23 02:00 BP 98/55 07/27/23 02:00 Pulse Ox 94 L 07/26/23 20:00 FiO2 94 07/27/23 08:16 Intake & Output 07/26/23 07/27/23 07/27/23 18:59 06:59 18:59 Intake Total 1575 300 Output Total 200 Balance 1375 300 Weight 106.6 kg 105.6 kg Intake: IV 375 Sodium Chloride 0.9% 1, 375 000 ml In Empty Bag 1 bag @ 75 mls/hr IV .[id number] [facility] Rx#:[id number] Oral 1200 300 Output: Urine 200 Other: Voiding Method Urinal Urinal # Voids 1 6 ABP, PAP, CO, CI - Last Documented Arterial Blood Pressure 112/57 - Constitutional General appearance: Present: obese - EENT Eyes: Absent: abnormal pupil - Neck Neck: Absent: lymphadenopathy - Respiratory Respiratory: bilateral: diminished - Cardiovascular Heart rate: 110 Rhythm: regular Heart sounds: normal: S1, S2 Abnormal Heart Sounds: Absent: S3 Gallop - Gastrointestinal General gastrointestinal: Present: soft. Absent: tenderness - Integumentary Integumentary: Absent: cellulitis - Psychiatric Psychiatric: Present: A&O x's 3 - Labs CBC & Chem 7: 07/26/23 09:34 07/26/23 09:34 Labs: Abnormal Lab Results - Last 24 Hours (Table) 07/26/23 07/26/23 07/26/23 Range/Units 09:34 09:34 09:34 WBC 11.5 H (3.8-10.6) k/uL Sodium 136 L (137-145) mmol/L Glucose 131 H (74-99) mg/dL AST 325 H (17-59) U/L ALT 71 H (4-49) U/L Troponin I 50.500 H* (0.000-0.034) ng/mL Assessment and Plan (1) Hypertension Current Visit: Yes Status: Acute Code(s): I10 - ESSENTIAL (PRIMARY) HYPERTENSION SNOMED Code(s): 38019658 (2) Chest pain Current Visit: Yes Status: Acute Code(s): R07.9 - CHEST PAIN, UNSPECIFIED SNOMED Code(s): 36816512 (3) NSTEMI (non-ST elevated myocardial infarction) Current Visit: Yes Status: Acute Code(s): I21.4 - NON-ST ELEVATION (NSTEMI) MYOCARDIAL INFARCTION SNOMED Code(s): 31543922 Plan: Stable at this time. We'll continue to follow after NSTEMI. Stool but tachycardic. Watch vitals closely. Continue to follow with cardiology.
[2023-07-27] MEDS: ASPIRIN 81 MG PO SCH (08:42)
[2023-07-27] MEDS: PRASUGREL 10 MG TAB PO SCH (08:42)
[2023-07-27] MEDS ORDERED: METOPROLOL SUCCINATE (ER) 25 MG TAB.ER.24H PO SCH (09:00)
--- NOTE | 2023-07-27 09:27 | PN ---
PROGRESS NOTE SUBJECTIVE: Jim is a 67-year-old gentleman, who is admitted to hospital with kqo-LQ-visgdpz elevation SC, underwent emergent cardiac catheterization, angioplasty of mid LAD. His post angioplasty course was complicated by acute stent thrombosis. This morning, he is doing well. Denies any chest pain, difficulty in breathing. He has been somewhat hypotensive and did not receive his metoprolol last night. OBJECTIVE: VITAL SIGNS: This morning, heart rate is around 100 beats per minute, blood pressure is 110/70, respiratory rate is 18, O2 saturation is 94% on room air. NECK: There is no jugular venous distention. Carotid upstroke is normal. There is no bruit. CHEST: Reveals good air entry bilaterally. HEART: Reveals first and second heart sounds. No gallop. No murmur. No rub. ABDOMEN: Soft, nontender. EXTREMITIES: Did not reveal any edema. Peripheral pulses are felt. LABORATORY DATA: His repeat echocardiogram showed an ejection fraction of 30% to 35%. The troponin peaked at 50. His LDL cholesterol is 44.7. Potassium is 4.1, creatinine is 0.7 with a hemoglobin of 14.3. ASSESSMENT: Acute vdl-VQ-dzfzkii elevation myocardial infarction, status post catheterization and angioplasty of LAD, complicated by acute stent thrombosis. PLAN: The patient is doing well this morning, he is somewhat hypotensive. I am going to decrease the dose of Toprol to 25 mg daily and cut the Hyzaar dose down. Continue the rest of his medications including the statin. My initial plan was to discharge him home today, but I will not. We will watch him for another day and hopefully be discharged home tomorrow. MMODL / IJN: [id number] /
[2023-07-27] MEDS: LOSARTAN 25 MG TAB PO SCH (10:10)
[2023-07-27] MEDS: LATANOPROST 0.005% OPHTH DROPS 2.5 ML BTL BOTH EYES SCH (21:45)
[2023-07-27] MEDS: ATORVASTATIN 80 MG TAB PO SCH (21:45)
[2023-07-27 23:19] VITALS: RESP 18
[2023-07-28] MEDS: LEVOTHYROXINE 100 MCG TAB PO SCH (06:19)
[2023-07-28] MEDS: LEVOTHYROXINE 75 MCG TAB PO SCH (06:19)
--- NOTE | 2023-07-28 08:42 | P.DS ---
Providers Date of admission: 07/25/23 14:56 Attending physician: Kristofer Chappell Consults: 07/25/23 11:37 Consult Physician Urgent Consulting Provider: Og Choudhary Consult Reason/Comments: chest pain Do you want consulting provider notified?: Yes 07/25/23 18:40 Consult Physician Routine Consulting Provider: Jessica Geronimo Consult Reason/Comments: Post Interventional Patient Do you want consulting provider notified?: Already Contacted 07/25/23 20:59 Consult Physician Routine Consulting Provider: Jessica Geronimo Consult Reason/Comments: Post Interventional Patient Do you want consulting provider notified?: Already Contacted Primary care physician: Kristofer Chappell - Discharge Diagnosis(es) (1) Chest pain Current Visit: Yes Status: Acute (2) Hypertension Current Visit: Yes Status: Acute (3) NSTEMI (non-ST elevated myocardial infarction) Current Visit: Yes Status: Acute Hospital Course: This is a 67-year-old male who was admitted with non-ST segment elevation [place], he underwent emergent cardiac catheterization and angioplasty of mid LAD. Post angioplasty was complicated by acute stent thrombosis. Patient is feeling much better. Vitals have been stable and he is anxious to go home. Cardiology has recommended Toprol all 50 mg daily and cut the Hyzaar dose down. Patient seen and evaluated by nurse practitioner, physician in agreement with plan Patient Condition at Discharge: Fair Plan - Discharge Summary Discharge Rx Participant: No New Discharge Prescriptions: New Losartan [Cozaar] 25 mg PO DAILY 30 Days #30 tab Metoprolol Succinate (ER) [Toprol XL] 50 mg PO DAILY 30 Days #30 tab Prasugrel [Effient] 10 mg PO DAILY 30 Days #30 tab Continue Multivitamins, Thera [Multivitamin (formulary)] 1 tab PO DAILY Aspirin EC [Ecotrin Low Dose] 81 mg PO HS Loratadine [Claritin] 10 mg PO DAILY Latanoprost [Latanoprost 0.005%] 1 drop BOTH EYES HS Levothyroxine Sodium [Synthroid] 175 mcg PO DAILY Changed Rosuvastatin [Crestor] 20 mg PO HS 30 Days #60 tab Discontinued Metoprolol Succinate [Toprol XL] 100 mg PO HS Losartan-Hctz 50-12.5 mg [Hyzaar 50-12.5] 2 tab PO DAILY Discharge Medication List Aspirin EC [Ecotrin Low Dose] 81 mg PO HS 07/25/23 [History] Latanoprost [Latanoprost 0.005%] 1 drop BOTH EYES HS 07/25/23 [History] Levothyroxine Sodium [Synthroid] 175 mcg PO DAILY 07/25/23 [History] Loratadine [Claritin] 10 mg PO DAILY 07/25/23 [History] Multivitamins, Thera [Multivitamin (formulary)] 1 tab PO DAILY 07/25/23 [History] Losartan [Cozaar] 25 mg PO DAILY 30 Days #30 tab 07/28/23 [Rx] Metoprolol Succinate (ER) [Toprol XL] 50 mg PO DAILY 30 Days #30 tab 07/28/23 [Rx] Prasugrel [Effient] 10 mg PO DAILY 30 Days #30 tab 07/28/23 [Rx] Rosuvastatin [Crestor] 20 mg PO HS 30 Days #60 tab 07/28/23 [Rx] Follow up Appointment(s)/Referral(s): Kristofer Chappell MD [Primary Care Provider] - 1 Week Vicente Muir MD [STAFF PHYSICIAN] - 1 Week Discharge Disposition: HOME SELF-CARE
[2023-07-28] MEDS: LOSARTAN 25 MG TAB PO SCH (08:57)
[2023-07-28] MEDS: PRASUGREL 10 MG TAB PO SCH (08:58)
[2023-07-28] MEDS: ASPIRIN 81 MG PO SCH (08:58)
[2023-07-28] MEDS ORDERED: METOPROLOL SUCCINATE (ER) 50 MG TAB.ER.24H PO SCH (09:00)
[2023-07-28 11:19] VITALS: BP 163/71; PULSE 105; TEMP 97.9
--- NOTE | 2023-07-28 11:41 | P.PN ---
Subjective HISTORY OF PRESENT ILLNESS: This is a 67-year-old male with a past medical history significant for hypertension, hyperlipidemia, and former nicotine dependence. Patient does not follow with a hand touch up painter. We have been asked to see the patient in consultation for chest pain. Patient examined at the bedside in the emergency room. Patients and daughter present. The patient presented to [facility] this morning with a chief complaint of chest pain. The patient states he has been having chest pain on and off since Tuesday. He reports the pain is in the middle of his chest and feels like a pressure type sensation. He also reports radiation into his left arm. He denied feeling nauseated. He does rep ort having mild diaphoresis. He denied any shortness of breath. At the time of examination, the patient is chest pain-free and is resting comfortably on the ER stretcher. Patient's vital signs are stable. He was found to have an elevated troponin and was started on IV heparin. * EKG reveals sinus mechanism with nonspecific ST-T wave changes. T-wave inversions in lead III and V3 * Current home cardiac medications include Crestor 10 mg at night, metoprolol succinate 100 mg at night, losartan-hydrochlorothiazide 50-12.5mg 2 tablets daily, aspirin 81 mg daily 07/28/2023 Patient is status post stenting of the mid LAD complicated by stent thrombosis. Patient examined this morning at the bedside. Patient denies chest pain or pressure. He denies shortness of breath. Vital signs are stable. Heart rate is in the high 90s this morning. Telemetry reveals sinus mechanism. Patient has been up ambulating without difficulty. PHYSICAL EXAM: VITAL SIGNS: Reviewed. GENERAL: Well-developed in no acute distress. HEENT: Head is normocephalic. Pupils are equal, round. Sclerae anicteric. Mucous membranes of the mouth are moist. Neck supple. No JVD or thyromegaly LUNGS: Respirations even and unlabored. Lungs essentially clear to auscultation bilaterally. HEART: Regular rate and rhythm. S1 and S2 heard. ABDOMEN: Soft. Nondistended. Nontender. EXTREMITIES: Normal range of motion. No clubbing or cyanosis. Peripheral pulses intact. No lower extremity edema NEUROLOGIC: Awake and alert. Oriented x 3. ASSESSMENT: Chest pain Non-STEMI, status post stenting of the LAD complicated by acute stent thrombosis Ischemic myopathy Hypertension Hyperlipidemia Former nicotine dependence PLAN: Increase metoprolol to 50 mg daily Continue additional cardiac medications Continue dual antiplatelet therapy with aspirin and Effient Patient may be discharged home today from a cardiac standpoint Nurse practitioner note has been reviewed by physician. Signing provider agrees with the documented findings, assessment, and plan of care. Objective - Vital Signs Vital signs: Vital Signs Temp 97.8 F 07/27/23 21:00 Pulse 91 07/28/23 03:46 Resp 18 07/28/23 03:46 BP 111/67 07/28/23 03:46 Pulse Ox 96 07/28/23 08:51 FiO2 94 07/27/23 08:16 Intake & Output 07/27/23 07/28/23 07/28/23 18:59 06:59 18:59 Intake Total 320 240 Balance 320 240 Intake: Oral 320 240 Other: Voiding Method Toilet Toilet # Voids 2 1 ABP, PAP, CO, CI - Last Documented Arterial Blood Pressure 112/57 - Labs CBC & Chem 7: 07/26/23 09:34 07/26/23 09:34
== END 2023-07-28 12:36 | disposition home or self-care (01) | DRG 247 ==
LOC: EC 11:28 → 3SCARD 14:56 → 2SICU 22:21 → 3SCARD 07-27 13:53
PROVIDERS: ADMIT Family Medicine; ATTEND Family Medicine
PROC: 4A023N8 Measurement of Cardiac Sampling and Pressure, Bilateral, Percutaneous Approach (ICD-10-PCS; 2023-07-25)
PROC: B241ZZ3 Ultrasonography of Multiple Coronary Arteries, Intravascular (ICD-10-PCS; 2023-07-25)
PROC: B2111ZZ Fluoroscopy of Multiple Coronary Arteries using Low Osmolar Contrast (ICD-10-PCS; 2023-07-25)
PROC: 027034Z Dilation of Coronary Artery, One Artery with Drug-eluting Intraluminal Device, Percutaneous Approach (ICD-10-PCS; principal; 2023-07-25 16:46)
PROC: 02703ZZ Dilation of Coronary Artery, One Artery, Percutaneous Approach (ICD-10-PCS; 2023-07-25 16:46)
PROC: 02C03ZZ Extirpation of Matter from Coronary Artery, One Artery, Percutaneous Approach (ICD-10-PCS; 2023-07-25 16:46)
DX: I21.4 Non-ST elevation (NSTEMI) myocardial infarction (principal); I10 Essential (primary) hypertension; I25.110 Atherosclerotic heart disease of native coronary artery with unstable angina pectoris; E05.00 Thyrotoxicosis with diffuse goiter without thyrotoxic crisis or storm; E78.5 Hyperlipidemia, unspecified; Z87.891 Personal history of nicotine dependence; R00.0 Tachycardia, unspecified
CPT/HCPCS: 36415; 80048; 80053; 80061; 84484; 85025; 85027; 85610; 85730; 92978; 93005; 93306; 93308; 93458; 94760; 96365; 96366; 99291

== ENCOUNTER 2023-08-22 11:58 | Emergency (ER) | payer MEDICARE ==
--- NOTE | 2023-08-22 12:43 | ED ---
Fall HPI - General Chief Complaint: Fall Stated Complaint: fall-on thinners Time Seen by Provider: 08/22/23 12:21 Source: patient, RN notes reviewed, old records reviewed Mode of arrival: ambulatory Limitations: no limitations - History of Present Illness Initial Comments: This is a 68-year-old male to the emergency department for evaluation. Patient presents today for evaluation regards to fall. Patient of fall down some stairs while going outside today. Landing on his right leg hitting his right arm on the railing. Patient had no other injuries aside from his right hip he is able to ambulate without difficulty currently recent started on blood thinners after having a stent placed. Patient has no shortness of breath or chest pain follows mechanical in nature. Patient called his primary care who urged him to come the hospital for further evaluation. Patient pain is under control and has no other significant complaints denies hitting his head MD Complaint: fall, other (right hip pain) -: hour(s) Fall From: standing When Fall Occurred: 1 hour SHOVE UP Fall Witnessed: yes, by family Place Fall Occurred: home Loss of Consciousness: none Prolonged Down Time?: no Symptoms Prior to Fall: none Location - Extremities: Right: Thigh Severity: moderate Severity scale (1-10): 5 Quality: sharp Context: tripped/slipped Associated Symptoms: denies - Related Data Home Medications Medication Instructions Recorded Confirmed Aspirin EC [Ecotrin Low Dose] 81 mg PO HS 07/25/23 07/25/23 Latanoprost [Latanoprost 0.005%] 1 drop BOTH EYES HS 07/25/23 07/25/23 Levothyroxine Sodium [Synthroid] 175 mcg PO DAILY 07/25/23 07/25/23 Loratadine [Claritin] 10 mg PO DAILY 07/25/23 07/25/23 Multivitamins, Thera [Multivitamin 1 tab PO DAILY 07/25/23 07/25/23 (formulary)] Previous Rx's Medication Instructions Recorded Losartan [Cozaar] 25 mg PO DAILY 30 Days #30 tab 07/28/23 Metoprolol Succinate (ER) [Toprol 50 mg PO DAILY 30 Days #30 tab 07/28/23 XL] Prasugrel [Effient] 10 mg PO DAILY 30 Days #30 tab 07/28/23 Rosuvastatin [Crestor] 20 mg PO HS 30 Days #60 tab 07/28/23 Allergies Allergy/AdvReac Type Severity Reaction Status Date / Time No Known Allergies Allergy Verified 08/22/23 12:09 Review of Systems ROS Statement: Those systems with pertinent positive or pertinent negative responses have been documented in the HPI. ROS Other: All systems not noted in ROS Statement are negative. Past Medical History Past Medical History: Hypertension, Thyroid Disorder Additional Past Medical History / Comment(s): Grave's Disease, History of Any Multi-Drug Resistant Organisms: None Reported Past Surgical History: Ear Surgery, Orthopedic Surgery Additional Past Surgical History / Comment(s): Shoulder surgeries Past Anesthesia/Blood Transfusion Reactions: No Reported Reaction Additional Past Anesthesia/Blood Transfusion Reaction / Comment(s): Pt reports difficult intubation Past Psychological History: No Psychological Hx Reported Smoking Status: Former smoker Past Alcohol Use History: None Reported Past Drug Use History: None Reported General Exam Limitations: no limitations General appearance: alert, in no apparent distress Head exam: Present: atraumatic, normocephalic, normal inspection Eye exam: Present: normal appearance, PERRL, EOMI. Absent: scleral icterus, conjunctival injection, periorbital swelling ENT exam: Present: normal exam, mucous membranes moist Neck exam: Present: normal inspection. Absent: tenderness, meningismus, lymphadenopathy Respiratory exam: Present: normal lung sounds bilaterally. Absent: respiratory distress, wheezes, rales, rhonchi, stridor Cardiovascular Exam: Present: regular rate, normal rhythm, normal heart sounds. Absent: systolic murmur, diastolic murmur, rubs, gallop, clicks GI/Abdominal exam: Present: soft, normal bowel sounds. Absent: distended, tenderness, guarding, rebound, rigid Extremities exam: Present: normal inspection, full ROM, normal capillary refill. Absent: tenderness, pedal edema, joint swelling, calf tenderness Back exam: Present: normal inspection Neurological exam: Present: alert, oriented X3, CN II-XII intact Psychiatric exam: Present: normal affect, normal mood Skin exam: Present: warm, dry, intact, normal color. Absent: rash Course Vital Signs 08/22/23 08/22/23 12:09 13:44 Temperature 97.8 F 98.3 F Pulse Rate 95 92 Respiratory 16 18 Rate Blood Pressure 150/89 146/86 O2 Sat by Pulse 97 97 Oximetry - Reevaluation(s) Reevaluation #1: 08/22/23 12:40 Medical record is reviewed Reevaluation #2: 08/22/23 12:40 Patient's pain is controlled is able to ambulate without difficulty Reevaluation #3: 08/22/23 12:41 Patient symptoms unchanged Patient informed results and questions answered Reevaluation #4: 08/22/23 12:40 Was pt. sent in by a medical professional or institution (, [facility], AIR CONDITIONING MECHANIC, urgent care, hospital, or [facility]...) When possible be specific @ -no Did you speak to anyone other than the patient for history (EMS, parent, family, police, friend...)? What history was obtained from this source @ -no Did you review nursing and triage notes (agree or disagree)? Why? @ -agree Are old charts reviewed (outside hosp., previous admission, EMS record, old EKG, old radiological studies, urgent care reports/EKG's, [facility] records)? Report findings @ -yes Differential Diagnosis (chest pain, altered mental status, abdominal pain women, abdominal pain men, vaginal bleeding, weakness, fever, dyspnea, syncope, headache, dizziness, GI bleed, back pain, seizure, CVA, palpatations, mental health, musculoskeletal)? @ -prior EKG interpreted by me (3pts min.). @ -no X-rays interpreted by me (1pt min.). @ -no CT interpreted by me (1pt min.). @ -no U/S interpreted by me (1pt. min.). @ -no What testing was considered but not performed or refused? (CT, X-rays, U/S, labs)? Why? @ -none What meds were considered but not given or refused? Why? @ -none Did you discuss the management of the patient with other professionals (pro fessionals i.e. , [facility], [employer] CONDITIONING MECHANIC, lab, RT, psych nurse, social worker aide, contract loader, teacher, bank operations officer, case loader operator)? Give summary @ -no Was smoking cessation discussed for >3mins.? @ -no Was critical care preformed (if so, how long)? @ -no Were there social determinants of health that impacted care today? How? (Homelessness, low income, unemployed, alcoholism, drug addiction, transportation, low edu. Level, literacy, decrease access to med. care, intermediate, rehab)? @ -none Was there de-escalation of care discussed even if they declined (Discuss DNR or withdrawal of care, Hospice)? DNR status @ -no What co-morbidities impacted this encounter? (DM, HTN, Smoking, COPD, CAD, Cancer, CVA, ARF, Chemo, Hep., AIDS, mental health diagnosis, sleep apnea, morbid obesity)? @ -none Was patient admitted / discharged? Hospital course, mention meds given and route, prescriptions, significant lab abnormalities, going to OR and other pertinent info. @ - 68 male to the ED c/o fall on blood thinners, right leg and thigh pain, contusion with hematoma. Patient has no significant complaints and denies hitting his head. Discharge Undiagnosed new problem with uncertain prognosis? @ -no Drug Therapy requiring intensive monitoring for toxicity (Heparin, Nitro, Insulin, Cardizem)? @ -no Were any procedures done? @ -no Diagnosis/symptom? @ -Fall, hip contusion Acute, or Chronic, or Acute on Chronic? @ -Acute Uncomplicated (without systemic symptoms) or Complicated (systemic symptoms)? @ -Complicated Side effects of treatment? @ -no Exacerbation, Progression, or Severe Exacerbation? @ -exacerbation Poses a threat to life or bodily function? How? (Chest pain, [place], [place], pneumonia, PE, COPD, DKA, ARF, appy, cholecystitis, CVA, Diverticulitis, Homicidal, Suicidal, threat to staff... and all critical care pts) @ -yes fall on blood thinners Medical Decision Making - Medical Decision Making 68 male to the ED c/o fall on blood thinners, right leg and thigh pain, contusion with hematoma. Patient has no significant complaints and denies hitting his head. Disposition Clinical Impression: Fall, Contusion of right hip, Hip hematoma, right Disposition: HOME SELF-CARE Condition: Good Instructions (If sedation given, give patient instructions): Hip Pain (ED) Is patient prescribed a controlled substance at d/c from ED?: No Referrals: Kristofer Chappell MD [Primary Care Provider] - 1-2 days Time of Disposition: 00:30
[2023-08-22 13:49] VITALS: BP 146/86; PULSE 92; RESP 18; TEMP 98.3
== END 2023-08-22 13:46 | disposition home or self-care (01) ==
LOC: EC 11:58
DX: S70.01XA Contusion of right hip, initial encounter (principal); I10 Essential (primary) hypertension; E07.9 Disorder of thyroid, unspecified; Z79.890 Hormone replacement therapy; Z79.01 Long term (current) use of anticoagulants; Z79.82 Long term (current) use of aspirin; Z79.899 Other long term (current) drug therapy; Z87.891 Personal history of nicotine dependence; W10.9XXA Fall (on) (from) unspecified stairs and steps, initial encounter
CPT/HCPCS: 99283

== ENCOUNTER 2024-07-12 06:50 | Day surgery (SDC) | payer MEDICARE ==
[2024-07-10 09:59] VITALS: BMI 36.0
[2024-07-12 07:23] VITALS: TEMP 98.4
[2024-07-12] MEDS: LACTATED RINGERS 1,000 ML IV SCH (07:29)
[2024-07-12] MEDS: IV FLUID CONTINUATION 1,000 ML IV ONE ×2 (07:30)
[2024-07-12] MEDS ORDERED: PROPOFOL 10 MG/ML 20 ML VIAL IV ONE (08:03)
--- NOTE | 2024-07-12 08:07 | P.GSHP ---
History of Present Illness H&P Date: 07/12/24 Chief Complaint: Screening colonoscopy This a 68-year-old male presents today for screening colonoscopy. Patient denies any significant GI complaints. Past Medical History Past Medical History: Coronary Artery Disease (CAD), Hypertension, Osteoarthritis (OA), Thyroid Disorder Additional Past Medical History / Comment(s): Grave's Disease, History of Any Multi-Drug Resistant Organisms: None Reported Past Surgical History: Ear Surgery, Heart Catheterization With Stent, Orthopedic Surgery, Tonsillectomy Additional Past Surgical History / Comment(s): Shoulder surgeries, lens surgery stent 2022 Past Anesthesia/Blood Transfusion Reactions: No Reported Reaction Additional Past Anesthesia/Blood Transfusion Reaction / Comment(s): Pt reports difficult intubation Date of Last Stent Placement:: 2022 Smoking Status: Former smoker - Past Family History Father Family Medical History: Deep Vein Thrombosis (DVT) Medications and Allergies Home Medications Medication Instructions Recorded Confirmed Type Aspirin EC [Ecotrin Low Dose] 81 mg PO HS 07/25/23 07/12/24 History Latanoprost [Latanoprost 0.005%] 1 drop BOTH EYES HS 07/25/23 07/12/24 History Levothyroxine Sodium [Synthroid] 175 mcg PO DAILY 07/25/23 07/12/24 History Loratadine [Claritin] 10 mg PO DAILY 07/25/23 07/12/24 History Multivitamins, Thera [Multivitamin 1 tab PO DAILY 07/25/23 07/12/24 History (formulary)] Losartan [Cozaar] 25 mg PO DAILY 30 Days #30 tab 07/28/23 07/12/24 Rx Rosuvastatin [Crestor] 20 mg PO HS 30 Days #60 tab 07/28/23 07/12/24 Rx Ketorolac 0.5% Ophth Soln [Acular 1 drops BOTH EYES DIRECTED 07/10/24 07/12/24 History 0.5%] Metoprolol Succinate (ER) [Toprol 50 mg PO HS 07/10/24 07/12/24 History XL] prednisoLONE ACETATE 1% OPHTH 1 drops BOTH EYES Q4HR 07/10/24 07/12/24 History [Pred Forte 1%] Allergies Allergy/AdvReac Type Severity Reaction Status Date / Time No Known Allergies Allergy Verified 07/12/24 07:18 Surgical - Exam Vital Signs Temp Pulse Resp BP Pulse Ox 98.4 F 97 18 160/76 98 07/12/24 07:17 07/12/24 07:17 07/12/24 07:17 07/12/24 07:17 07/12/24 07:17 - General well developed, well nourished, no distress - Eyes PERRL - ENT normal pinna - Neck no masses - Respiratory normal expansion - Cardiovascular Rhythm: regular - Abdomen Abdomen: soft, non tender Assessment and Plan Assessment: Will perform screening colonoscopy.
--- NOTE | 2024-07-12 08:16 | P.OP ---
Date of Procedure: 07/12/24 Preoperative Diagnosis: Screening colonoscopy Postoperative Diagnosis: Normal colon Procedure(s) Performed: Colonoscopy Anesthesia: MAC Surgeon: Samuel Layne Pathology: none sent Condition: stable Disposition: PACU Description of Procedure: PROCEDURE: The patient was placed on the endoscopy table in the lateral position. Digital rectal examination was performed which revealed no abnormalities. The prostate was symmetrical without nodules. Flexible colonoscope was then placed in the patient's anus and passed throughout the entire colon. The ileocecal valve was visualized. The cecum, ascending, transverse, descending and sigmoid colon were normal. The rectum was normal as well. There were no masses, polyps or diverticula noted in the entire colon. SUMMARY OF FINDINGS: Normal colonoscopy.
[2024-07-12 08:20] VITALS: RESP 16
[2024-07-12 08:37] VITALS: BP 117/76; PULSE 83
== END 2024-07-12 08:55 | disposition home or self-care (01) ==
LOC: ORWHC2ENDO 06:50
PROVIDERS: ATTEND Surgery
DX: Z12.11 Encounter for screening for malignant neoplasm of colon (principal); I10 Essential (primary) hypertension; I25.10 Atherosclerotic heart disease of native coronary artery without angina pectoris; I25.2 Old myocardial infarction; M19.90 Unspecified osteoarthritis, unspecified site; E07.9 Disorder of thyroid, unspecified; Z87.891 Personal history of nicotine dependence; Z79.899 Other long term (current) drug therapy; Z79.890 Hormone replacement therapy; Z79.82 Long term (current) use of aspirin; Z90.89 Acquired absence of other organs; Z95.5 Presence of coronary angioplasty implant and graft
CPT/HCPCS: 45378